=== PATIENT | female | born 1995 | race American Indian/Alaskan Native ===

== ENCOUNTER 2017-09-01 00:18 | Inpatient (IN) | payer OTHER ==
[~2017-09-01] VITALS: Ht 154.9 cm; Wt 64.4 kg
[2017-09-01] MEDS ORDERED: PRENATAL TABLE1 EAC4 PO (00:52)
== END 2017-09-03 15:01 | disposition home or self-care (01) | DRG 775 ==
LOC: OBS/DEL 00:18 → LDR 02:06 → OB/GYN 02:06
PROC: 10E0XZZ Delivery of Products of Conception, External Approach (ICD-10-PCS; principal; 2017-09-01)
PROC: 10907ZC Drainage of Amniotic Fluid, Therapeutic from Products of Conception, Via Natural or Artificial Opening (ICD-10-PCS; 2017-09-01)
PROC: 4A033R1 Measurement of Arterial Saturation, Peripheral, Percutaneous Approach (ICD-10-PCS; 2017-09-01)
PROC: 4A1HXCZ Monitoring of Products of Conception, Cardiac Rate, External Approach (ICD-10-PCS; 2017-09-01)
DX: O69.81X0 Labor and delivery complicated by cord around neck, without compression, not applicable or unspecified (principal); O99.824 Streptococcus B carrier state complicating childbirth; Z3A.39 39 weeks gestation of pregnancy; Z37.0 Single live birth